=== PATIENT | male | born 1980 | race Caucasian/White ===

== ENCOUNTER 2017-05-01 23:17 | Emergency (ER) | payer OTHER ==
[~2017-05-01] VITALS: Ht 177.8 cm; Wt 108.5 kg
[2017-05-01 23:24] VITALS: Ht 177.8 cm; Wt 108.5 kg
[2017-05-02] MEDS ORDERED: HYDROCODONE/APAP (5/325) TAB PO ONE (00:30)
[2017-05-02] MEDS ORDERED: IBUPROFEN 800 MG TAB PO ONE (00:30)
--- NOTE | 2017-05-02 01:16 | RADRPT ---
PROCEDURE: XR Foot. CLINICAL INDICATION: 36-year-old male injury. Pain.. TECHNIQUE: Three views of the left foot. COMPARISON: None available. FINDINGS: There is a mildly displaced acute obliquely oriented fracture through the distal shaft of the fifth metatarsal. Distal fracture fragment is displaced medially 2 cortical widths. There is overlying s oft tissue swelling. No other acute fractures are identified in the foot.. IMPRESSION: Acute mildly displaced oblique fracture of the shaft of the fifth metatarsal. RPTAT: [facility]CTS Physician Ramos Date Time Electronically viewed and signed by Physician Ramos on 05/02/2017 01:15 CS/
[2017-05-02] MEDS ORDERED: NAPR-688 PO (02:29)
[2017-05-02] MEDS ORDERED: HYDR-906 PO (02:29)
[2017-05-02 02:39] VITALS: BP 132/71; PULSE 71; RESP 20; TEMP 98.1
--- NOTE | 2017-05-02 02:39 | ERD ---
ER Documentation Chief Complaint Date/Time DATE: 05/02/17 TIME: 02:31 Chief Complaint Pt reports L foot pain after wrong step playing soccer HPI 36-year-old male presents for left lateral foot pain after playing soccer with his nephew and some other kids. He stepped down and he felt instant pain and believes he broke his foot. No other injuries ROS All systems reviewed and are negative except as per history of present illness. Medications Home Meds Active Scripts Naproxen* (Naproxen*) 500 Mg Tablet, 500 MG PO BID Y for PAIN, #20 TAB Prov:JOE CHATMAN DO 05/02/17 Hydrocodone/Acetaminophen ([place] 5-325 Tablet) 1 Each Tablet, 1 EACH PO Q6, #14 TAB Prov:JOE CHATMAN DO 05/02/17 Reported Medications [None] No Conflict Check 03/28/11 Allergies Allergies: Coded Allergies: No Known Allergy (Verified Allergy, Mild, 03/28/11) PMhx/Soc Medical and Surgical Hx: pt denies Medical Hx, pt denies Surgical Hx History of Surgery: No Anesthesia Reaction: No Hx Neurological Disorder: No Hx Respiratory Disorders: No Hx Cardiac Disorders: No Hx Psychiatric Problems: No Hx Miscellaneous Medical Probl: No Hx Alcohol Use: Yes (RARELY) Hx Substance Use: No Hx Tobacco Use: Yes (1 PACK A DAY) Smoking Status: Current every day smoker Physical Exam Vitals Vital Signs Date Time Temp Pulse Resp B/P Pulse Ox O2 Delivery O2 Flow Rate FiO2 05/01/17 23:24 98.3 109 20 136/77 96 Physical Exam Const: [] No distress Head: Atraumatic Eyes: Normal Conjunctiva Ext: No cyanosis, or edema, normal appearance of foot with tenderness to palpation along mid and distal fifth metatarsal area. Full range of motion of ankle without pain. Refill less than 1 second. Neur: Awake and alert Results 24 hrs Current Medications Medications (Trade) Dose Ordered Sig/Jyoti Route PRN Reason Start Time Stop Time Status Last Admin Dose Admin Acetaminophen/ Hydrocodone Bitart ([place] (5/325)) 1 tab ONCE ONCE PO 05/02/17 00:30 05/02/17 00:31 DC Ibuprofen (Motrin) 800 mg ONCE ONCE PO 05/02/17 00:30 05/02/17 00:31 DC Procedures/MDM Mildly displaced metatarsal fracture. Patient was ordered [place] and ibuprofen but he declined pain medicine. Going to discharge her with [place] and naproxen as well as instructions to obtain or so follow-up. Also bit was placed after which I perform neurovascular exam the patient was neurovascularly intact. He was also given crutches. X-ray interpretation left foot: I see a mildly displaced fracture of the fifth metatarsal with no other fractures or dislocations. No soft tissue swelling that I can see Departure Diagnosis: Primary Impression: Fracture of fifth metatarsal bone of left foot Condition: Stable Patient Instructions: Fracture, Foot Additional Instructions: Call your primary care doctor TOMORROW for an appointment during the next 2-3 days. Get a referral for an orthopedist. See the doctor sooner or return here if your condition worsens before your appointment time. JOE CHATMAN DO May 02, 2017 02:39
== END 2017-05-02 02:40 | disposition home or self-care (01) ==
LOC: FTE 23:17
DX: S92.352A Displaced fracture of fifth metatarsal bone, left foot, initial encounter for closed fracture (principal); F17.210 Nicotine dependence, cigarettes, uncomplicated; X50.9XXA Other and unspecified overexertion or strenuous movements or postures, initial encounter; Y92.9 Unspecified place or not applicable